=== PATIENT | female | born 1955 | race Caucasian/White ===

== ENCOUNTER 2016-10-15 09:57 | Emergency (ER) | payer BC ==
--- NOTE | ~2016-10-15 | CR127 ---
[facility]. [facility] A Service of [facility] [place] & [facility] RADIOLOGY TEXT RESULTS PATIENT: TANYA OLSON LOCATION: SED : 53 UNIT #: [id number] AGE: [address]: CIAO COREY PA-C SEX: F ORDER DR: [id number] [place] [id number] E MR#: [id number] Acc #: [id number] NAME: TANYA OLSON. : 1955 SEX: F STUDY DATE/TIME: 10/15/2016 10:15 UNIT: SED ROOM: STUDY DESCRIPTION: CR Foot Complete Min 3 View Rt Attending Physician: Caio Corey Pa-C Ordering Physician: Caio Corey Pa-C Primary Care Physician: Lazaro Hooks M.D. MEDICAL IMAGING REPORT This report is preliminary unless electronic signature is present. EXAM Right foot 3 views 10/15/2016 COMPARISON None CLINICAL HISTORY Pain and swelling after fall last night. FINDINGS There is osteopenia without fracture or dislocation. No acute abnormality is seen. There is mild degenerative change in the great toe metatarsophalangeal joint. IMPRESSION Osteopenia without acute abnormality. Dictated by... Daniel Cage M.D. THIS IS AN ELECTRONICALLY VERIFIED REPORT Daniel Cage M.D. at 10/15/2016 4:27 PM TEV/to TD: 10/15/2016 14:19 JOB #: [id number] MEDICAL IMAGING REPORT Page 1 of 1
[~2016-10-15 09:57] MED LIST: CYMBALTA PO; ULTRAM PO
[2016-10-15] MEDS ORDERED: BLOOD PRESSURE MED (10:03)
[2016-10-15] MEDS ORDERED: ACID REFLUX MED (10:04)
== END 2016-10-15 11:05 | disposition home or self-care (01) ==
LOC: SED 09:57
DX: S93.601A Unspecified sprain of right foot, initial encounter (principal); M85.80 Other specified disorders of bone density and structure, unspecified site; I10 Essential (primary) hypertension; K21.9 Gastro-esophageal reflux disease without esophagitis; Z90.710 Acquired absence of both cervix and uterus; Z90.49 Acquired absence of other specified parts of digestive tract; W01.0XXA Fall on same level from slipping, tripping and stumbling without subsequent striking against object, initial encounter; Y92.34 Swimming pool (public) as the place of occurrence of the external cause
CPT/HCPCS: 29405; 73630; 99283